=== PATIENT | female | born 1940 | race Caucasian/White ===

== ENCOUNTER 2023-11-30 14:43 | Emergency (ER) | payer MEDICARE ==
[~2023-11-30] VITALS: Ht 160 cm; Wt 53.1 kg
[~2023-11-30 14:43] MED LIST: PRILOSEC20 MG PO; VITAMIN D-32000 UNIT PO
[2023-11-30] MEDS ORDERED: PREDNISONE20 MG PO (16:07)
[2023-11-30 16:33] VITALS: BP 160/81; PULSE 78; RESP 18; O2SAT 100
== END 2023-11-30 16:33 | disposition home or self-care (01) ==
LOC: FSED 14:47
DX: R05.9 Cough, unspecified (principal); R07.89 Other chest pain; E78.00 Pure hypercholesterolemia, unspecified; K21.9 Gastro-esophageal reflux disease without esophagitis
CPT/HCPCS: 71250; 80053; 85025; 85379; 99283